=== PATIENT | male | born 1985 | race Caucasian/White ===

== ENCOUNTER 2021-09-01 20:33 | Emergency (ER) | payer SELFPAY ==
[2021-09-01 20:37] VITALS: BP 150/78; PULSE 61; RESP 18; TEMP 36.8; O2SAT 100
[2021-09-01 20:44] VITALS: BP 142/76; PULSE 70; RESP 20; O2SAT 100
== END 2021-09-01 22:00 | disposition left against medical advice (07) ==
LOC: ANHED 21:13
DX: R21 Rash and other nonspecific skin eruption (principal)
CPT/HCPCS: 99199

== ENCOUNTER 2022-01-27 22:14 | Emergency (ER) | payer SELFPAY ==
[2022-01-27 22:44] VITALS: BP 134/77; PULSE 77; RESP 18; TEMP 36.6; O2SAT 99
--- NOTE | 2022-01-28 00:58 | ED.SKABFB ---
HPI - Skin/Abscess/Foreign Bdy General Chief complaint: Skin/Abscess/Foreign Body <NAWAF Womack Last Filed: 01/28/22 04:04> Stated complaint: boil beneath R axilla <NAWAF Womack Last Filed: 01/28/22 04:04> Time Seen by Provider: 01/27/22 23:53 <NAWAF Womack Last Filed: 01/28/22 04:04> Source: patient <NAWAF Womack Last Filed: 01/28/22 04:04> Mode of arrival: ambulatory <NAWAF Womack Last Filed: 01/28/22 04:04> Limitations: no limitations <NAWAF Womack Last Filed: 01/28/22 04:04> History of Present Illness HPI narrative: Patient is a 36-year-old male who presents the ED with report of an abscess to his right axillary region. Patient reports the pain and swelling has been increasing over the last 1 week. He does have a history of frequent abscesses in his armpits, groin, gluteal cleft. He states he was told he had an inflammatory condition, but denies ever hearing the term 'hidradenitis suppurativa.' Denies any spontaneous drainage from the abscess. Denies any fevers, but reports sweating at night over the last week. He has not taken any pain medication. Patient recently moved to the area. He also notes a history of recurrent diverticulitis, but denies any current abdominal pain, nausea, vomiting, diarrhea, constipation, rectal bleeding. <NAWAF Womack Last Filed: 01/28/22 04:04> Related Data Allergies/Adverse reactions: Allergies Allergy/AdvReac Type Severity Reaction Status Date / Time No Known Allergies Allergy Verified 09/01/21 20:40 <NAWAF Womack Last Filed: 01/28/22 04:04> Review of Systems Review of Systems: CONSTITUTIONAL: Reports sweats. Denies fever. CARDIOVASCULAR: Denies chest pain. RESPIRATORY: Denies dyspnea. GASTROINTESTINAL: Denies abdominal pain, nausea, vomiting, rectal bleeding, or diarrhea. SKIN: Reports painful, swollen, abscess to right axillary region. Denies drainage. MUSCULOSKELETAL: Denies back pain. NEUROLOGIC: Denies numbness, tingling, or weakness. <Alena Baker PA-C - Last Filed: 01/28/22 04:04> All systems reviewed & are unremarkable except as noted in HPI and below <Alena Baker PA-C - Last Filed: 01/28/22 04:04> PMFSH Past Medical History Medical History: Medical History (Updated 01/28/22 @ 01:12 by Alena Baker PA-C) History of abscess of skin and subcutaneous tissue History of diverticulitis <Alena Baker PA-C - Last Filed: 01/28/22 04:04> Surgical History Surgical History: Surgical History (Updated 01/28/22 @ 01:08 by Alena Baker PA-C) No pertinent past surgical history <Alena Baker PA-C - Last Filed: 01/28/22 04:04> Social History Social History: Social History (Updated 01/28/22 @ 01:08 by Alena Baker PA-C) Tobacco type: cigars <Alena Baker PA-C - Last Filed: 01/28/22 04:04> Exam Narrative: GENERAL: Well appearing, well-nourished, non-toxic, in no acute distress. HEAD: Normocephalic, atraumatic. NECK: Supple. No adenopathy, no masses. RESPIRATORY: Airway patent, respirations nonlabored. Clear to auscultation bilaterally, no rales, rhonchi, wheezing. CARDIOVASCULAR: Regular rate and rhythm without murmurs, rubs, or gallops. Peripheral pulses 2+ and equal bilaterally. ABDOMINAL: Soft, no significant tenderness to palpation, nondistended, no hepatosplenomegaly. Normoactive BS. MUSCULOSKELETAL: Moves all extremities. Strength/ROM intact without gross deformities. SKIN: Warm, dry, normal color. Large erythematous tender inflammatory lesion/abscess in R axillary region. Skin tunnelling and scarring present in bilateral axillary regions, R > L. No active inflammation in L axillary region. NEURO: A&O X3. Speech clear. Cranial nerves II-XII grossly intact. Steady gait. No ataxic movements. PSYCHIATRIC: Appropriate mood and affect. Normal interaction. <Alena Baker PA-C - Last Filed: 01/28/22 04:04>
[2022-01-28] MEDS: KETOROLAC (*BKC) 60 MG/2 ML VIAL IM (01:23)
[2022-01-28 01:25] LABS: Basophils Percent Auto 0.4 % (0.2-1.2); Eosinophils Absolute Auto 0.2 K/mm3 (0-0.3); Eosinophils Percent Auto 1.3 % (0-4.4); Hematocrit 44.9 % (42.0-52.0); Hemoglobin 14.7 g/dL (14.0-18.0); Immature Granulocyte Absolute 0.05 K/mm3 (0.00-0.031); Immature Granulocyte Percent A 0.4 % (0-0.5); Lymphocytes Absolute Auto 2.15 K/mm3 (0.9-3.2); Lymphocytes Percent Auto 19.2 % (18.3-44.2); Mean Corpuscular HGB Conc 32.7 g/dl (32-36); Mean Corpuscular Hemoglobin 29.2 pg (26-34); Mean Corpuscular Volume 89.3 fl (80-100); Mean Platelet Volume 10.9 fl (7.4-10.4); Monocytes Absolute Auto 0.8 K/mm3 (0.1-0.6); Monocytes Percent Auto 6.7 % (2.6-8.5); Platelet Count Result 230 k/mm3 (150-375); Red Blood Count 5.03 M/mm3 (4.6-6.20); Red Cell Distribution Width 13.2 % (11.5-14.5); White Blood Count 11.2 K/mm3 (4.5-10.0)
[2022-01-28 01:42] LABS: Alanine Aminotransferase 18 U/L (6-50); Albumin Level 4.4 g/dL (3.5-5.1); Alkaline Phosphatase 51 U/L (38-126); Anion Gap 6 mmol/L (8-16); Aspartate Amino Transferase 25 U/L (17-59); Bilirubin,Total 0.1 mg/dL (0.2-1.3); Blood Urea Nitrogen 15 mg/dL (9-20); Calcium 8.7 mg/dL (8.4-10.2); Carbon Dioxide 30 mmol/L (22-30); Chloride 103 mmol/L (98-107); Estimated CRCL calculation 101 ml/min; Estimated Glomerular Filt Rate > 60; Glucose 108 mg/dL (65-110); Potassium 3.7 mmol/L (3.4-5.0); Sodium 139 mmol/L (137-145)
[2022-01-28] MEDS: DOXYCYCLINE HYCLATE 100 MG TABLET PO (02:22)
[2022-01-28 02:26] VITALS: BP 116/67; PULSE 65; RESP 16; O2SAT 98
--- NOTE | 2022-01-28 16:04 | PC.NURSE ---
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 Pharmacist wants to know if pain medication should only be filled. Told pharmacist pt needs to fill antibiotics before getting narcotic pain meds filled.
== END 2022-01-28 02:27 | disposition home or self-care (01) ==
PROVIDERS: Physician Assistant; Emergency Provider Emergency Medicine
DX: L73.2 Hidradenitis suppurativa (principal); L02.411 Cutaneous abscess of right axilla
CPT/HCPCS: 36415; 80053; 85025; 96372; 99283; A9270; J1885

== ENCOUNTER 2022-01-29 07:01 | Emergency (ER) | payer SELFPAY ==
[2022-01-29 07:08] VITALS: BP 158/99; PULSE 68; RESP 20; TEMP 36.6; O2SAT 100
[2022-01-29 07:22] VITALS: BP 145/106; PULSE 73; RESP 18; TEMP 36.5; O2SAT 99
--- NOTE | 2022-01-29 07:51 | ED.SKABFB ---
HPI - Skin/Abscess/Foreign Bdy General Chief complaint: Skin/Abscess/Foreign Body Stated complaint: cyst in rt axilla Time Seen by Provider: 01/29/22 07:47 History of Present Illness HPI narrative: 36-year-old male presents to the emergency room secondary to abscess to the right axilla. Has had these open and drained about 6 or 7 times. This has been developing for about a week and is gotten to the point he cannot tolerate the pain any longer. Denies any chills or fevers. Skin no discharge from it at this time. Hurts when he tries to move his right upper extremity. Related Data Allergies Allergy/AdvReac Type Severity Reaction Status Date / Time No Known Allergies Allergy Verified 09/01/21 20:40 Review of Systems Review of Systems: CONSTITUTIONAL: Denies fever, chills, or sweats. EYES: Denies visual changes, redness, or discharge. ENT: Denies rhinorrhea, congestion, sore throat, or otalgia. CARDIOVASCULAR: Denies chest pain, palpitations, or edema. RESPIRATORY: Denies cough or dyspnea. GASTROINTESTINAL: Denies abdominal pain, nausea, vomiting, or diarrhea. GENITOURINARY: Denies dysuria or hematuria. SKIN: Denies rash or itching. Abscess under right arm MUSCULOSKELETAL: Denies back pain, joint pain, or myalgia. NEUROLOGIC: Denies headache, numbness, or weakness. PSYCHIATRIC: Denies anxiety or depression. PMFSH Past Medical History Medical History History of abscess of skin and subcutaneous tissue History of diverticulitis Surgical History Surgical History No pertinent past surgical history Social History Social History Tobacco type: cigars Exam Narrative: APPEARANCE: Well appearing, no pain or distress, well-nourished. Head normocephalic and atraumatic. EYES: PERRLA/EOMI, conjunctivae very clear. NOSE: Normal with no drainage EARS:TMS clear Raul Lopez, with good light reflex. THROAT: Pharynx clear, no exudate. NECK: Supple. No adenopathy, no masses. RESPIRATORY: Airway patent, respirations nonlabored. Clear to auscultation bilaterally, no rales, rhonchi, wheezing. CARDIOVASCULAR: Regular rate and rhythm without murmurs, rubs, or gallops. ABDOMINAL: Soft, nontender, nondistended, no hepatosplenomegaly Musculoskeletal: Moves all extremities. Strength/ROM intact, No edema, No calf tenderness. Noted to have approximately 4 cm x 3 cm fluctuant area to the right axilla which is exquisitely tender. Decreased range of motion right upper extremity secondary to pain. NEURO: Alert. Cranial nerves II through XII intact. Normal gait. Good coordination. Nonfocal examination. SKIN:: Warm, dry. Normal Color PSYCHIATRIC: Normal affect/mood, normal interaction Course Vital Signs Vital signs: Vital Signs Temperature 97.8 F 01/29/22 07:08 Pulse Rate 68 01/29/22 07:08 Respiratory Rate 20 01/29/22 07:08 Blood Pressure 158/99 H 01/29/22 07:08 Pulse Oximetry 100 01/29/22 07:08 Oxygen Delivery Room Air 01/29/22 07:08 Temperature 97.7 F 01/29/22 07:22 Pulse Rate 73 01/29/22 07:22 Respiratory Rate 18 01/29/22 07:22 Blood Pressure 145/106 H 01/29/22 07:22 Pulse Oximetry 99 01/29/22 07:22 Oxygen Delivery Room Air 01/29/22 07:22 Procedures Abscess I/D other: Abcess I&D Additional Comments: Patient has an abscess to the right axilla is approximately 4 cm x 3 cm. A lot of induration in the area. Area was cleaned with Betadine solution and infiltrated with a total of 10 cc 1% lidocaine with epinephrine. Stab incision made with a #11 blade with purulent drainage coming out. Approximately 10 to 15 mL was drained. Hemostats were used to break up any loculations and then it was packed using iodoform gauze. Patient tolerated procedure well. MDM - Skin/Abscess/Foreign Bdy MDM Narrative Medical decision making narrative:
[2022-01-29] MEDS: KETOROLAC (*BKC) 60 MG/2 ML VIAL IM (08:14)
[2022-01-29 09:02] VITALS: BP 125/56; PULSE 98; RESP 20; O2SAT 98
== END 2022-01-29 09:00 | disposition home or self-care (01) ==
PROVIDERS: Emergency Provider Emergency Medicine
DX: L02.411 Cutaneous abscess of right axilla (principal)
CPT/HCPCS: 10061; 96372; 99283; J1885

== ENCOUNTER 2022-03-15 22:11 | Emergency (ER) | payer SELFPAY ==
[2022-03-15 22:14] VITALS: BP 127/89; PULSE 87; RESP 17; TEMP 37.2; O2SAT 99
--- NOTE | 2022-03-15 22:34 | ED.BACK ---
HPI - Back Pain/Injury General Chief Complaint: Back Pain/Injury Stated Complaint: previous episode of weakness, needs work note Time Seen by Provider: 03/15/22 22:21 History of Present Illness HPI Narrative: 36-year-old male presents the emergency room for evaluation of low back pain. 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 Patient denies any saddle anesthesias or radicular pain. Denies any injury or trauma. Patient states he is here for a work note as his low back pain is resolving. Related Data Allergies Allergy/AdvReac Type Severity Reaction Status Date / Time No Known Allergies Allergy Verified 09/01/21 20:40 Review of Systems Review of Systems: CONSTITUTIONAL: Denies fever, chills, or sweats. EYES: Denies visual changes, redness, or discharge. ENT: Denies rhinorrhea, congestion, sore throat, or otalgia. CARDIOVASCULAR: Denies chest pain, palpitations, or edema. RESPIRATORY: Denies cough or dyspnea. GASTROINTESTINAL: Denies abdominal pain, nausea, vomiting, or diarrhea. GENITOURINARY: Denies dysuria or hematuria. SKIN: Denies rash or itching. MUSCULOSKELETAL: Reports low back pain NEUROLOGIC: Denies headache, numbness, dizziness, or weakness. PSYCHIATRIC: Denies anxiety or depression. PMFSH Past Medical History Medical History History of abscess of skin and subcutaneous tissue History of diverticulitis Surgical History Surgical History No pertinent past surgical history Social History Social History Tobacco type: cigars Exam Narrative: GENERAL: Well-appearing, well-nourished, no physical limitations, and in no acute distress. HEAD: Normocephalic, atraumatic. EYES: Conjunctivae normal, PERRLA and EOMI. CHEST: Clear to auscultation. No respiratory distress. No wheezes rales or rhonchi. No tenderness. HEART: Regular rate and rhythm. No murmur heard. Normal peripheral pulses. BACK: No CVA tenderness; No lumbar tenderness, step-offs, bony abnormality; FROM EXTREMITIES: Normal range of motion. No edema. No clubbing or cyanosis SKIN: Warm, dry, no rash. No noted wounds NEURO: No focal deficits. Alert and oriented x3. MAEW. CN's II-XI intact bilaterally, normal gait PSYCH: Cooperative. Normal mood and affect. Course Vital Signs Vital signs: Vital Signs Temperature 37.2 C 03/15/22 22:14 Pulse Rate 87 03/15/22 22:14 Respiratory Rate 17 03/15/22 22:14 Blood Pressure 127/89 03/15/22 22:14 Pulse Oximetry 99 03/15/22 22:14 Oxygen Delivery Room Air 03/15/22 22:14 Temperature 37.2 C 03/15/22 22:14 Pulse Rate 87 03/15/22 22:14 Respiratory Rate 17 03/15/22 22:14 Blood Pressure 127/89 03/15/22 22:14 Pulse Oximetry 99 03/15/22 22:14 Oxygen Delivery Room Air 03/15/22 22:14 Discharge Plan Discharge Clinical Impression: Strain of lumbar region Patient Disposition: Home, Self-Care Condition: Stable Instructions: Antibiotic Form, Acute Low Back Pain (ED) Additional Instructions: Tylenol and ibuprofen as needed for pain. Recommend applying heat to affected areas and stretching. Prescriptions: No Action clindamycin phosphate 1 % solution 1 applic topical BID Qty: 60 0RF doxycycline monohydrate 100 mg tablet 100 mg PO BID 10 Days Qty: 20 0RF hydrocodone-acetaminophen 5-325 mg tablet 1 tablet PO Q6H PRN (Reason: pain) Qty: 5 0RF naproxen 500 mg tablet 500 mg PO BID PRN (Reason: pain) Qty: 20 0RF naproxen 500 mg tablet,delayed release (DR/EC) 500 mg PO BID PRN (Reason: pain) Qty: 14 0RF clindamycin HCl 300 mg capsule 300 mg PO Q8H Qty: 21 0RF Follow-up/Referrals: PHYSICIAN,COMMUNICATION INSTRUCTOR [Primary Care Provider] - Stand Alone Forms: Work/School Release IP Time of Disposition: 22:32
== END 2022-03-15 22:54 | disposition home or self-care (01) ==
PROVIDERS: Emergency Provider Nurse Practitioner Family
DX: S39.012A Strain of muscle, fascia and tendon of lower back, initial encounter (principal); F17.290 Nicotine dependence, other tobacco product, uncomplicated; X50.3XXA Overexertion from repetitive movements, initial encounter
CPT/HCPCS: 99282